=== PATIENT | female | born 1995 | race Caucasian/White ===

== ENCOUNTER 2024-01-31 07:36 | Inpatient (IN) ==
--- NOTE | 2024-01-31 07:45 | History & Physical Report ---
Date of Service January 31, 2024 Assessment & Plan (1) Encounter for induction of labor: Plan 28 y/o at 39w 1d presenting for induction of labor: Pitocin AROM as indicated Epidural prn Monitor heart tracings, category 1 Admission and Anticipated Discharge Date Admission Date: January 31, 2024 History of Present Illness Primary Care Provider: NO PCP 28 y/o female currently at 39w 1d with an [place] 02/06/24 as determined by LMP, who is here for IOL: complicated by: Obesity (BMI 40 and higher @ beginning of ) *Growth US @ 32wks *Weekly NSTs @ 34wks *BMI 40 or greater offer detailed/level II anatomy at M *BMI 40 or above offer delivery by EDC. Suspected LGA EFW 93%, AC 85% at 32 weeks - Growth at 36 weeks--efw 75%, AC 79% Had regular appointments with OB denies Contractions + movement denies Fluid loss denies Vaginal bleeding External FHT and external uterine monitors used: Category 1 tracing, baseline rate 150, moderate variability, irregular contractions OB Labs: Blood Type A Positive 06/27/23 Antibody Screen NEGATIVE 06/27/23 Hemoglobin 12.7 g/dl (12.0-16.0) 11/15/23 Hematocrit 38.4 % (37.0-47.0) 11/15/23 Mean Corpuscular Volume 84.6 fL (80.0-100.0) 06/27/23 Platelet Count 367 K/uL (130-400) 06/27/23 Rubella IgG Antibody Immune (Immune) 06/27/23 Rapid Plasma Reagin Nonreactive (Nonreactive) 06/27/23 Hepatitis B Surface Antigen. NON-REACTIVE (NON-REACTIVE) 06/27/23 Hepatitis C Antibody (EIA) NON-REACTIVE (NON-REACTIVE) 06/27/23 HIV (1&2) Ag and Ab Confirmation NON-REACTIVE (NON-REACTIVE) 06/27/23 Glucose 1 Hour 50 gm Load 118 mg/dl (70-130) 11/15/23 OB Optional Labs: Chlamydia trachomatis RNA Not Detected (NotDetected) 06/27/23 Neisseria gonorrhoeae RNA Not Detected (NotDetected) 06/27/23 Labs Reviewed: Declines genetics--mln gbs neg--akh Allergies Allergy/AdvReac Type Severity Reaction Status Date / Time No Known Allergies Allergy Unverified 01/30/24 15:26 Home Medications Medication Instructions Recorded Confirmed Type PNV [id number] PO 06/20/23 01/30/24 History [ Gummies] Patient History Medical History (Updated 01/31/24 @ 07:50 by Brandon Ellis DO) Varicella vaccination Surgical History (Updated 06/20/23 @ 10:07 by Pepper Cintron) History of gynecologic surgery hymenectomy S/P wisdom tooth extraction Family History (Updated 06/20/23 @ 09:56 by Pepper Cintron) Mother Endometriosis Denies family history of Ovarian cancer Breast cancer Colorectal cancer Social History (Updated 06/20/23 @ 09:57 by Pepper Cintron) Smoking Status: Never smoker Second Hand Exposure: No; Do You Dip or Chew Tobacco: No; Hx Alcohol Use: No Hx Substance Use: No Preferred Language: Dutch Communication Ability: Effective Engineer First Assistant Required: No Beliefs That Will Affect Care: None marital status: marital status details: Aneesh Lauren(29) [phone] Current Living Situation: Spouse Current Living Situation Comment: Lives with Aneesh and a dog current occupational status: employed 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 No acute distress Cardiac: Regular rate and rhythm, no murmurs appreciated Respiratory: Lungs clear to auscultation bilaterally, No increased work of breathing Abdominal: Soft, non-tender, non-distended. Bowel sounds present. Gravid uterus. Extremities: No lower extremity edema, calves non-tender bilaterally FHT/[place]: Category 1 tracing, baseline rate 150, moderate variability, irregular contractions : 3/70/-2 per attending exam Results & Data Vital Signs (Past 12 Hours) Vital Signs Pulse BP 01/31/24 07:43 94 H 123/72 Supervising Physician Co-Signing Physician Notes Resident Physician Supervision Note: I interviewed and examined the patient. Discussed with Dr. Ellis and agree with findings and plan as documented in the note. Any exceptions or clarifications are listed here: [None] Documented By: Marisol Mercado MD, FACOG Resident Activity Tracking Resident Involvement: Resident Care Provided Care Provided: OB Delivery
[2024-01-31] MEDS ORDERED: OXYTOCIN 30 UNITS/NSS 30 UNITS/500 ML BAG IV PRN (08:20)
[2024-01-31] MEDS ORDERED: LIDOCAINE 1% LOCAL 20 ML VIAL INFIL PRN (08:20)
[2024-01-31 08:56] LABS: Hematocrit (blood only) 35.4 % (37.0-47.0); Hemoglobin 11.4 g/dl (12.0-16.0); Mean Corpuscular Hemoglobin 26.6 pg (25.0-34.0); Mean Corpuscular Hgb Conc 32.2 g/dL (32.0-36.0); Mean Corpuscular Volume 82.5 fL (80.0-100.0); Mean Platelet Volume 10.7 fL (9.4-12.4); Platelet Count 254 K/uL (130-400); RDW Coefficient of Variation 14.2 % (11.5-14.5); RDW Standard Deviation 41.4 fL (36.4-46.3); Red Blood Count 4.29 M/uL (4.20-5.40); White Blood Count 7.75 K/ul (4.8-10.8)
[2024-01-31] MEDS: LACTATED RINGER'S 1,000 ML IV PRN (09:19)
[2024-01-31] MEDS: OXYTOCIN 30 UNITS/NSS 30 UNITS/500 ML BAG IV PRN (09:19)
--- NOTE | 2024-01-31 12:51 | Anesthesiology Consultation ---
Date of Service January 31, 2024 Assessment & Plan (1) Encounter for pre-operative examination: Chart Review Chart Review: Acceptable Risk for Labor Epidural History Height/Weight Height: 5 ft 9 in Weight: 134.717 kg Allergies Allergy/AdvReac Type Severity Reaction Status Date / Time No Known Allergies Allergy Unverified 01/30/24 15:26 Medications Home Medications Medication Instructions Recorded Confirmed Last Taken PNV no.[id number] PO 06/20/23 01/30/24 01/28/24 10:00 [ Gummies] Active Medications Generic Name Dose Route Start Last Admin Trade Name Freq PRN Reason Stop Dose Admin Oxytocin 30 units in 500 mls @ 10 mls/hr 01/31/24 08:25 01/31/24 11:25 Pitocin 30 Units/Nss IV 02/02/24 08:24 0.6 units/hr .Q24H PRN 10 mls/hr Labor Induction/Augmentation Titration Protocol 0.6 UNITS/HR Lactated Ringer's 1,000 mls @ 125 mls/hr 01/31/24 08:20 01/31/24 09:19 Lr IV 02/02/24 08:19 125 mls/hr .Q8H PRN Administration L&D Protocol Protocol Past Medical History Medical History Varicella vaccination Past Family History Family History Mother Endometriosis Denies family history of Ovarian cancer Breast cancer Colorectal cancer Past Surgical History Surgical History History of gynecologic surgery hymenectomy S/P wisdom tooth extraction Social History Smoking Status: Never smoker Do You Dip or Chew Tobacco: No Hx Alcohol Use: No Hx Substance Use: No substance use type: does not use Physical Exam Vital Signs Last Vital Signs Temp 36.7 C 01/31/24 08:15 Pulse 90 01/31/24 12:46 Resp 16 01/31/24 08:15 BP 139/81 01/31/24 12:45 Pulse Ox 100 01/31/24 12:46 Testing Laboratory Results 01/31/24 08:40 Blood Type A Positive 01/31/24 08:40 Antibody Screen NEGATIVE 01/31/24 08:40
[2024-01-31] MEDS: fentANYL 2 MCG/ML BUPIVacaine 0.125%-NSS 100ML BAG ONE (13:15)
[2024-01-31] MEDS ORDERED: NALOXONE HCL 0.4 MG/1 ML VIAL/CARP IV PRN (13:23)
[2024-01-31] MEDS ORDERED: LIDOCAINE 2% MPF LOCAL 5 ML VIAL EPI PRN (13:23)
[2024-01-31] MEDS ORDERED: ePHEDrine sulfate 50 MG/ML AMP IV PRN (13:23)
[2024-01-31] MEDS ORDERED: NALOXONE HCL 1 MG in SODIUM CHLORIDE 0.9% 1,000 ML IV PRN (13:23)
[2024-01-31] MEDS ORDERED: ROPIVACAINE 0.5% PF 5 MG/ML 20 ML VIAL EPI PRN (13:23)
[2024-01-31] MEDS: BUPIVACAINE 0.25% PF 30 ML VIAL ONE (13:28)
[2024-01-31] MEDS: LIDOCAINE 2%/EPINEPHRINE 1:200,000 20 ML PF ONE (13:28)
[2024-01-31] MEDS: fentaNYL citrate PF 100 MCG/2 ML VIAL EPI STA (13:29)
[2024-01-31] MEDS: SODIUM CHLORIDE 0.9% PF INJ 10 ML VIAL ONE (17:33)
[2024-01-31] MEDS: ePHEDrine sulfate 50 MG/ML AMP ONE (17:33)
[2024-01-31] MEDS: fentaNYL citrate PF 100 MCG/2 ML VIAL ONE (17:33)
[2024-01-31] MEDS: LIDOCAINE 2%/EPINEPHRINE 1:200,000 20 ML PF EPI STA (17:33)
[2024-01-31] MEDS: BUPIVACAINE 0.25% PF 30 ML VIAL EPI STA (17:33)
[2024-01-31] MEDS: SODIUM CHLORIDE 0.9% PF INJ 10 ML VIAL EPI STA (17:34)
[2024-01-31] MEDS: fentANYL 2 MCG/ML BUPIVacaine 0.125%-NSS 100ML BAG EPI PRN (21:07)
[2024-02-01] MEDS: BUPIVACAINE 0.25% PF 30 ML VIAL EPI PRN (02:42)
[2024-02-01] MEDS: fentaNYL citrate PF 100 MCG/2 ML VIAL EPI PRN (02:43)
[2024-02-01] MEDS: SODIUM CHLORIDE 0.9% PF INJ 10 ML VIAL EPI PRN (02:43)
[2024-02-01] MEDS: ONDANSETRON INJ 2 MG/ML 2 ML VIAL IV PRN (03:14)
[2024-02-01] MEDS: ONDANSETRON INJ 2 MG/ML 2 ML VIAL IV STA (05:11)
[2024-02-01] MEDS ORDERED: SODIUM CHLORIDE 0.9% 250 ML IV PRN (07:10)
[2024-02-01] MEDS ORDERED: OXYTOCIN 30 UNITS/NSS 30 UNITS/500 ML BAG IV PRN (08:38)
[2024-02-01] MEDS ORDERED: bisacodyL 10 MG SUPP PR PRN (08:38)
[2024-02-01] MEDS ORDERED: ACETAMINOPHEN 325 MG TAB PO PRN (08:38)
[2024-02-01] MEDS ORDERED: HYDROCORTISONE ACETATE 25 MG SUPP PR PRN (08:38)
[2024-02-01] MEDS ORDERED: oxyCODONE/ACETAMINOPHEN 5mg/325mg TAB PO PRN (08:38)
--- NOTE | 2024-02-01 09:01 | Anesthesia Procedure Note ---
Date of Service February 01, 2024 Anesthesia Post Epidural Note Vital Signs Vital Signs: Temp Pulse Resp BP Pulse Ox 36.7 C 72 18 126/62 96 02/01/24 06:58 02/01/24 08:45 02/01/24 06:58 02/01/24 08:45 02/01/24 08:28 Pain Intensity Abdomen: Pain Intensity: 0 Notes Mental Status: alert / awake / arousable Nausea / Vomiting: adequately controlled Pain: adequately controlled Airway Patency, RR, SpO2: stable & adequate BP & HR: stable & adequate Hydration State: stable & adequate Neuraxial Anesthesia: was administered and sensory block is resolving Anesthetic Complications: no major complications apparent and Pt Satisfied with anesthetic care Epidural: Removed without complications and With tip intact
[2024-02-01] MEDS: IBUPROFEN 600 MG TAB PO PRN (10:52)
--- NOTE | 2024-02-01 13:17 | Delivery Summary ---
Vaginal Delivery Summary Date of Service February 01, 2024 Vaginal Delivery Summary and 1st Degree LAC (vaginal) Patient is a 28-year-old 1 P0 female EDC 02/06/2024 who presented for induction of labor because of obesity and suspected LGA fetus. Cervix was found to be favorable on admission for induction and Pitocin induction protocol per L&D was begun. Membranes were ruptured for clear fluid and she received effective epidural analgesia. She progressed to full dilation and pushed effectively over intact perineum for delivery of viable male infant. After the head was delivered in occiput anterior presentation, a shoulder cord presented and was reduced as the shoulders were delivered with maternal effort. was placed on the mother's abdomen for further attention and drying. After initial stimulation, he was slow to respond and he was taken to the baby bed for further evaluation and treatment after clamping and cutting the umbilical cord. Baby responded to resuscitative measures and began to cry spontaneously. After cord blood was obtained, the placenta was expressed intact with a three-vessel cord. A first-degree vaginal and superficial periurethral tear that was bleeding were repaired with 3-0 chromic in the usual fashion. Straight cath was performed for approximately 200 cc of concentrated urine. QBL was 229 mL. [facility] Vaginal Delivery Charge Delivery Type Details: and 1st Degree LAC (vaginal)
[2024-02-01] MEDS: BENZOCAINE 20% SPRY 85 APPLN/85 GM CAN EXT PRN (16:31)
[2024-02-01] MEDS: DIPHTHER/TETAN/PERTUS Vaccine (Tdap, Adol/Adult) 0.5mL IM ONE (16:32)
[2024-02-01] MEDS: DOCUSATE SODIUM 100 MG CAP PO SCH (20:41)
--- NOTE | 2024-02-02 06:26 | Obstetrical Progress Note ---
Date of Service <Brandon Ellis DO - Last Filed: 02/02/24 06:27> February 02, 2024 Assessment & Plan <Brandon Ellis - Last Filed: 02/02/24 06:27> (1) Encounter for assessment: Plan 28 y/o PPD#1: Eating well, voiding well, ambulating well Vitals reviewed, WNL Pain well controlled with Motrin Routine post care - OOB, ambulation, diet progression as tolerated Will have 6 week follow up with Dr. Burleson <Lulu Sierra, DO - Last Filed: 02/02/24 08:41> (1) Encounter for assessment: Subjective <Brandon Ellis, - Last Filed: 02/02/24 06:27> Ambulation: ambulating normally Voiding: no voiding problems Diet Tolerance:: regular diet Lochia:: Moderate Feeding Type:: breast feeding pain well controlled with Motrin Review of Systems -Denies fever or chills -Denies dyspnea, chest pain, or palpitations -Denies dysuria -Denies headache or changes in vision Physical Exam <Brandon Ellis, DO - Last Filed: 02/02/24 06:27> General: Alert and oriented. No acute distress Cardiac: Regular rate and rhythm, no murmurs appreciated Respiratory: Lungs clear to auscultation bilaterally, No increased work of breathing Abdominal: Soft, non-tender, non-distended. Bowel sounds present. Uterus: Uterine fundus firm, palpable below umbilicus Extremities: No lower extremity edema, calves non-tender bilaterally Results & Data <Brandon Ellis, DO - Last Filed: 02/02/24 06:27> Vital Signs (Past 12 Hours) Vital Signs Temp Pulse Resp BP Pulse Ox O2 Del Method 02/02/24 04:30 36.4 C L 79 18 100/68 94 Room Air 02/02/24 00:15 36.7 C 74 18 105/67 97 Room Air 02/01/24 20:30 36.8 C 77 16 115/76 97 Room Air Supervising Physician <Lulu Sierra, DO - Last Filed: 02/02/24 08:41> Co-Signing Physician Notes Resident Physician Supervision Note: I was present with Dr. Ellis during the history and exam. I discussed the case with the resident and agree with the findings and plan as documented in the note. Any exceptions or clarifications are listed here: PPD1 doing well, may want to go home later today. Documented By: Lulu Sierra DO Resident Activity Tracking <Brandon Ellis DO - Last Filed: 02/02/24 06:27> Resident Involvement: Resident Care Provided Care Provided: OB Delivery
[2024-02-02 08:06] LABS: Hematocrit (blood only) 31.5 % (37.0-47.0); Hemoglobin 9.8 g/dl (12.0-16.0); Mean Corpuscular Hemoglobin 26.2 pg (25.0-34.0); Mean Corpuscular Hgb Conc 31.1 g/dL (32.0-36.0); Mean Corpuscular Volume 84.2 fL (80.0-100.0); Mean Platelet Volume 10.8 fL (9.4-12.4); Platelet Count 232 K/uL (130-400); RDW Coefficient of Variation 14.5 % (11.5-14.5); RDW Standard Deviation 43.8 fL (36.4-46.3); Red Blood Count 3.74 M/uL (4.20-5.40); White Blood Count 12.51 K/ul (4.8-10.8)
[2024-02-02] MEDS: PRENATAL VITAMIN 1 TAB PO SCH (08:35)
[2024-02-02] MEDS: bisacodyL 5 MG TABEC PO SCH (20:31)
--- NOTE | 2024-02-03 07:07 | Obstetrical Progress Note ---
Date of Service <Brandon Ellis DO - Last Filed: 02/03/24 07:47> February 03, 2024 Assessment & Plan <Brandon Ellis DO - Last Filed: 02/03/24 07:47> (1) Encounter for assessment: Plan 28 y/o PPD#2: Eating well, voiding well, ambulating well Vitals reviewed, WNL Pain well controlled with Motrin Routine post care - OOB, ambulation, diet progression as tolerated Will have 6 week follow up with Dr. Burleson <Melissa Aragon MD, FACOG - Last Filed: 02/03/24 07:49> (1) Encounter for assessment: Subjective <Brandon Ellis DO - Last Filed: 02/03/24 07:47> Ambulation: ambulating normally Voiding: no voiding problems Diet Tolerance:: regular diet Lochia:: Moderate Feeding Type:: breast feeding pain well controlled with Motrin Review of Systems -Denies fever or chills -Denies dyspnea, chest pain, or palpitations -Denies dysuria -Denies headache or changes in vision Physical Exam <Brandon Ellis DO - Last Filed: 02/03/24 07:47> General: Alert and oriented. No acute distress Cardiac: Regular rate and rhythm, no murmurs appreciated Respiratory: Lungs clear to auscultation bilaterally, No increased work of breathing Abdominal: Soft, non-tender, non-distended. Bowel sounds present. Uterus: Uterine fundus firm, palpable below umbilicus Extremities: No lower extremity edema, calves non-tender bilaterally Results & Data <Brandon Ellis DO - Last Filed: 02/03/24 07:47> Vital Signs (Past 12 Hours) Vital Signs Temp Pulse Resp BP 02/03/24 04:35 36.6 C 80 16 118/78 02/02/24 20:35 36.6 C 72 16 116/76 Supervising Physician <Melissa Aragon MD, FACOG - Last Filed: 02/03/24 07:49> Co-Signing Physician Notes Resident Physician Supervision Note: I was present with Dr. Ellis during the history and exam. I discussed the case with the resident and agree with the findings and plan as documented in the note. Any exceptions or clarifications are listed here: pt doing well, ready to go home, ff 2 down nt, nt calves. ppd#2 s/p . f/u 6wks. instructions reviewed. breast, rhpos, ri Documented By: Melissa Aragon MD, FACOG Resident Activity Tracking <Brandon Ellis DO - Last Filed: 02/03/24 07:47> Resident Involvement: Resident Care Provided Care Provided: OB Delivery
[2024-02-03 07:50] LABS: Hematocrit (blood only) 31.1 % (37.0-47.0)
== END 2024-02-03 11:55 | disposition home or self-care (01) | DRG 807 ==
LOC: 4S1 07:36 → 4E2 02-01 10:49